=== PATIENT | male | born 2000 | race Caucasian/White ===

== ENCOUNTER 2021-08-29 20:10 | Emergency (ER) | payer OTHER ==
[~2021-08-29] VITALS: Ht 172.7 cm; Wt 72.6 kg
[~2021-08-29 20:10] MED LIST: ALBUTEROL INH
[2021-08-29 20:15] VITALS: BP 112/55
--- NOTE | 2021-08-29 20:18 | NUR ---
TO LOBBY A/W BED AMBULATORY
[2021-08-29] MEDS ORDERED: METOCLOPRAMIDE 10 MG/2 ML INJ VIAL IVP ONE (20:55)
[2021-08-29] MEDS ORDERED: NACL 0.9% 1,000 ML IV ONE (20:55)
[2021-08-29] MEDS ORDERED: FAMOTIDINE 20 MG/2 ML VIAL IVP ONE (20:55)
--- NOTE | 2021-08-29 21:35 | NUR ---
PT TAKEN TO CHAIR B VIA W/C.
[2021-08-29 21:36] LABS: BASOPHILS % (AUTO) 0.4 % (0.0-2.0); EOSINOPHILS # (AUTO) 0.1 K/uL (0-0.4); EOSINOPHILS % (AUTO) 0.5 % (0.0-4.0); HEMATOCRIT 44.3 % (36-52); HEMOGLOBIN 15.6 g/dL (12.0-18.0); LYMPHOCYTES # (AUTO) 1.7 K/uL (2.0-11.5); LYMPHOCYTES % (AUTO) 16.5 % (20.5-51.1); MEAN CORPUSCULAR HEMOGLOBIN 32 pg (27-31); MEAN CORPUSCULAR HGB CONC 35 g/dL (33-37); MEAN CORPUSCULAR VOLUME 89.7 fL (80-94); MONOCYTES # (AUTO) 0.7 K/uL (0.8-1.0); MONOCYTES % (AUTO) 6.9 % (1.7-9.3); NEUTROPHILS % (AUTO) 75.7 % (42.2-75.2); PLATELET COUNT (AUTO) 285 K/uL (140-450); RED BLOOD CELL COUNT(AUTO) 4.94 MIL/uL (4.20-6.10); RED CELL DISTRIBUTION WIDTH 12.7 % (11.6-13.7); WHITE BLOOD COUNT (AUTO) 10.5 K/uL (4.8-10.8)
[2021-08-29] MEDS ORDERED: MAG SULF 2000 MG/WATER PREMIX 50 ML IV ONE (21:45)
[2021-08-29 21:51] LABS: ALBUMIN 4.7 g/dL (3.4-5.0); ANION GAP 22.8 (8-16); CARBON DIOXIDE 20.2 mmol/L (21-32); CREATININE 1.2 mg/dL (0.6-1.3); TOTAL BILIRUBIN 0.9 mg/dL (0.0-1.0)
[2021-08-29] MEDS ORDERED: POTASSIUM CHLORIDE 10 MEQ TABER PO ONE (22:45)
[2021-08-29] MEDS ORDERED: FAMO-90 PO (22:50)
[2021-08-29] MEDS ORDERED: ONDA-188 SL (22:50)
[2021-08-30 00:10] VITALS: BP 112/55
--- NOTE | 2021-08-30 00:11 | NUR ---
Patient discharged with v/s stable. Written and verbal after care instructions given and explained. Patient verbalized understanding. Ambulatory with steady gait. All questions addressed prior to discharge. Advised to follow up with PMD.
== END 2021-08-30 00:11 | disposition home or self-care (01) ==
LOC: MED 20:10
DX: K29.70 Gastritis, unspecified, without bleeding (principal); R11.2 Nausea with vomiting, unspecified; E87.6 Hypokalemia; F41.9 Anxiety disorder, unspecified; F12.90 Cannabis use, unspecified, uncomplicated
CPT/HCPCS: 36415; 80053; 81002; 83690; 84484; 85025; 93005; 96361; 96365; 96375; 99284; J2765; J3475; J3490; J7030

== ENCOUNTER 2022-07-25 11:09 | Emergency (ER) | payer OTHER ==
[~2022-07-25] VITALS: Ht 170.2 cm; Wt 67.1 kg
[~2022-07-25 11:09] MED LIST changes: +FAMO-90 PO; +ONDA-188 SL
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
[2022-07-25 11:17] VITALS: BP 113/69
--- NOTE | 2022-07-25 11:20 | NUR ---
pt came back at this time
[2022-07-25] MEDS ORDERED: CYCL-711 PO (12:30)
[2022-07-25] MEDS ORDERED: LID5T TP (12:30)
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
--- NOTE | 2022-07-25 13:46 | NUR ---
The patient's care was reviewed and supervised by [place], RN.
== END 2022-07-25 12:50 | disposition home or self-care (01) ==
LOC: MED 11:09
DX: M25.561 Pain in right knee (principal); M54.2 Cervicalgia; J45.909 Unspecified asthma, uncomplicated
CPT/HCPCS: 99283

== ENCOUNTER 2022-08-30 12:56 | Emergency (ER) | payer OTHER ==
[~2022-08-30] VITALS: Ht 170.2 cm; Wt 65.8 kg
[~2022-08-30 12:56] MED LIST changes: +CYCL-711 PO; +LID5T TP
[2022-08-30 13:06] VITALS: BP 120/68
--- NOTE | 2022-08-30 13:25 | NUR ---
PT AMBULATED TO BED 07.
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
--- NOTE | 2022-08-30 14:30 | NUR ---
DR ART AT BEDSIDE.
[2022-08-30] MEDS ORDERED: DICYCLOMINE HCL LIQUID 20 MG, ALUMINUM HYD/MAG/SIMETHICONE 30 ML, LIDOCAINE VISCOUS 2% ... PO ONE ×3 (14:35)
[2022-08-30] MEDS ORDERED: KETOROLAC 30 MG/ML VIAL IM ONE (14:35)
[2022-08-30] MEDS ORDERED: ONDANSETRON 4 MG ODT PO ONE (14:35)
[2022-08-30] MEDS ORDERED: DICYCLOMINE HCL LIQUID 10 MG/5 ML UDC ONE (14:41)
[2022-08-30] MEDS ORDERED: ALUMINUM HYD/MAG/SIMETHICONE 30 ML UDC ONE (14:41)
[2022-08-30 15:01] LABS: BASOPHILS # (AUTO) 0.1 K/uL (0.00-0.22); BASOPHILS % (AUTO) 0.7 % (0.0-2.0); EOSINOPHILS % (AUTO) 0.2 % (0.0-4.0); HEMATOCRIT 44.6 % (36-52); HEMOGLOBIN 15.6 g/dL (12.0-18.0); LYMPHOCYTES # (AUTO) 1.8 K/uL (2.0-11.5); LYMPHOCYTES % (AUTO) 17.4 % (20.5-51.1); MEAN CORPUSCULAR HEMOGLOBIN 31 pg (27-31); MEAN CORPUSCULAR HGB CONC 35 g/dL (33-37); MEAN CORPUSCULAR VOLUME 88.7 fL (80-94); MONOCYTES # (AUTO) 0.6 K/uL (0.8-1.0); MONOCYTES % (AUTO) 5.7 % (1.7-9.3); NEUTROPHILS # (AUTO) 7.8 K/uL (1.8-7.7); PLATELET COUNT (AUTO) 286 K/uL (140-450); RED BLOOD CELL COUNT(AUTO) 5.03 MIL/uL (4.20-6.10); RED CELL DISTRIBUTION WIDTH 12.4 % (11.6-13.7); WHITE BLOOD COUNT (AUTO) 10.2 K/uL (4.8-10.8)
--- NOTE | 2022-08-30 15:08 | NUR ---
URINE COLLECTED AND WALKED TO THE LAB.
[2022-08-30 15:09] LABS: APPEARANCE,URINE CLEAR (CLEAR); BILIRUBIN,URINE NEGATIVE (NEGATIVE); BLOOD, URINE NEGATIVE (NEGATIVE); COLOR,URINE YELLOW (YELLOW); LEUKOCYTE ESTERASE ,URINE NEGATIVE (NEGATIVE); NITRITE, URINE NEGATIVE (NEGATIVE); UGLUCOSE NEGATIVE (NEGATIVE)
[2022-08-30 15:20] LABS: BARBITURATE, URINE NEGATIVE ng/ml (NEG <=200); BENZODIAZEPINE, URINE NEGATIVE ng/mL (NEG <=200); CANNABINOID, URINE POSITIVE ng/mL (NEG <=50); COCAINE, URINE NEGATIVE ng/mL (NEG <=300); OPIATE, URINE NEGATIVE ng/mL (NEG <=2000); PHENCYCLIDINE SCREEN,URINE NEGATIVE ng/mL (NEG <=25)
[2022-08-30 15:22] LABS: ALBUMIN 4.9 g/dL (3.4-5.0); ANION GAP 17.1 (8-16); ASPARTATE AMINOTRANSFERASE 16 U/L (15-37); CARBON DIOXIDE 25.6 mmol/L (21-32); CHLORIDE 102 mmol/L (98-107); GFR ARICAN-AMERICAN 120 mL/min (>90); GLUCOSE 99 mg/dL (74-106); LIPASE 65 U/L (73-393); POTASSIUM 3.7 mmol/L (3.5-5.1); SODIUM SERUM 141 mmol/L (136-145); TOTAL BILIRUBIN 0.8 mg/dL (0.0-1.0); UREA NITROGEN, BLOOD 9 mg/dL (7-18)
[2022-08-30] MEDS ORDERED: MAG355OR2 PO (15:29)
[2022-08-30] MEDS ORDERED: FAMO-90 PO (15:29)
[2022-08-30] MEDS ORDERED: ONDA-188 PO (15:29)
--- NOTE | 2022-08-30 15:36 | NUR ---
Patient discharged with v/s stable. Written and verbal after care instructions given and explained. Patient alert, oriented and verbalized understanding of instructions. Ambulatory with steady gait. All questions addressed prior to discharge. ID band removed. Patient advised to follow up with PMD. Rx of FAMOTIDINE, MAG HYDROX, ONDANSETRON given. Opportunity to ask questions provided and answered.
--- NOTE | 2022-08-30 15:46 | NUR ---
The patient's care was reviewed and supervised by Dari Crowell, RN, RN.
== END 2022-08-30 15:35 | disposition home or self-care (01) ==
LOC: MED 12:56
DX: K29.70 Gastritis, unspecified, without bleeding (principal); R11.2 Nausea with vomiting, unspecified; J45.909 Unspecified asthma, uncomplicated; F12.90 Cannabis use, unspecified, uncomplicated; Z79.899 Other long term (current) drug therapy
CPT/HCPCS: 36415; 80053; 80305; 81003; 83690; 85025; 96372; 99283; G0482; J1885; Q0162